=== PATIENT | male | born 1990 | race African-American/Black ===

== ENCOUNTER 2021-10-11 15:06 | Emergency (ER) | payer BC, SELFPAY ==
[2021-10-11 15:21] VITALS: BP 125/66; PULSE 64; RESP 16; TEMP 36.9; O2SAT 100
--- NOTE | 2021-10-11 15:26 | ED.EAR ---
HPI - Ear Problem General Chief complaint: Ear Stated complaint: EAR INFECTION Time Seen by Provider: 10/11/21 15:30 Source: patient and RN notes reviewed Mode of arrival: ambulatory Limitations: no limitations History of Present Illness HPI Narrative: 31-year-old male presents with concern for right ear pain. He reports he usually gets an ear infection every year . Reports usually has pus draining out of his ear when he has an ear infection. He reports decreased hearing in the ear. He denies any current drainage from the ear. He denies runny nose, stuffy nose, sore throat, fever, cough. MD Complaint: ear pain Related Data Home Medications Medication Instructions Recorded Confirmed levothyroxine 75 mcg PO DAILY 10/11/21 10/11/21 mirtazapine [Remeron] 30 mg PO DAILY 10/11/21 10/11/21 sertraline 100 mg PO DAILY 10/11/21 10/11/21 Allergies Allergy/AdvReac Type Severity Reaction Status Date / Time kiwi Allergy Itching Verified 10/11/21 15:26 shellfish derived Allergy Itching Verified 10/11/21 15:26 Review of Systems Review of Systems: CONSTITUTIONAL: Denies malaise, chills, sweats, or fever. EYES: Denies visual changes, redness, or discharge. ENT: Denies rhinorrhea, congestion, sinus pain, and sore throat. Reports right ear pain CARDIOVASCULAR: Denies chest pain, palpitations, or edema. RESPIRATORY: Denies cough. Denies dyspnea. GASTROINTESTINAL: Denies abdominal pain, nausea, vomiting, diarrhea SKIN: Denies rash or itching. MUSCULOSKELETAL: Denies myalgia. NEUROLOGIC: Denies headache. All systems reviewed & are unremarkable except as noted in HPI and below PMFSH Comments At time of signature, agree with nursing past medical, surgical, social and family history. There is no relevant family history pertinent to the presenting complaint Exam Narrative: GENERAL: Well-appearing, well-nourished, and in no acute distress. HEAD: Normocephalic EYES: PERRLA, conjunctivae clear ENT: Nares clear. Mucous membranes moist. Left TM pearly wright with dull light reflex, right TM not visible due to auditory canal abscess; right tragal tenderness. NECK: Supple. No lymphadenopathy CHEST: Clear to auscultation, breath sounds equal. No wheezing, rhonchi, rales, or stridor. No respiratory distress, speaks in full sentences. HEART: Regular rate and rhythm. No murmur heard. SKIN: Warm, dry, no rash. NEURO: Alert and oriented x3. PSYCH: Normal mood and affect Course Course Emergency Course: Patient is aware of diagnosis, understands and agrees to treatment plan. Anticipatory guidance given. Patient agrees to follow-up as directed and is aware of reasons to seek care at the emergency department. Portions of this record may have been created with voice recognition software Level of Care: Express Care Visit Vital Signs Vital signs: Vital Signs Temperature 98.4 F 10/11/21 15:21 Pulse Rate 64 10/11/21 15:21 Respiratory Rate 16 10/11/21 15:21 Blood Pressure 125/66 10/11/21 15:21 Pulse Oximetry 100 10/11/21 15:21 Temperature 98.4 F 10/11/21 15:21 Pulse Rate 64 10/11/21 15:21 Respiratory Rate 16 10/11/21 15:21 Blood Pressure 125/66 10/11/21 15:21 Pulse Oximetry 100 10/11/21 15:21 Reviewed. Procedures Abscess I/D other: Date of Incision: 10/11/21 Time of Incision: 15:35 Side (if applicable): right Local Anesthetic: none Amount of anesthesia used (mL): 2 Technique: needle aspiration Irrigation: No Packing used?: none I&D Results: Pus Abcess I&D Additional Comments: Small amount of pus expressed from EAC abscess, able to view behind the abscess, purulent drainage noted consistent with otitis externa. Ear wick placed to facilitate medication administration, instructions on removing ear wick were given. Patient verbalized understanding. Medical Decision Making MDM Narrative Medical decision making narrative: Differential diagnosis co
== END 2021-10-11 16:33 | disposition home or self-care (01) ==
PROVIDERS: Emergency Provider Nurse Practitioner; PCP Physician Assistant
DX: H60.90 Unspecified otitis externa, unspecified ear (principal); H60.01 Abscess of right external ear; E78.00 Pure hypercholesterolemia, unspecified
CPT/HCPCS: 10160; 99213; G0463

== ENCOUNTER 2023-07-18 20:44 | Emergency (ER) | payer BC, SELFPAY ==
[2023-07-18 20:48] VITALS: BP 126/83; PULSE 84; RESP 17; TEMP 36.3; O2SAT 100
[2023-07-18 20:49] VITALS: BP 126/83; PULSE 73; RESP 16; O2SAT 100
--- NOTE | 2023-07-18 21:15 | ED.GENADULT ---
HPI - General Adult General Chief complaint: Allergic Reaction Stated complaint: allergic reaction Time Seen by Provider: 07/18/23 20:52 History of Present Illness HPI narrative: This is a 32-year-old male presenting with allergic reaction. Patient said he had some watermelon and some gourmet potatoes. He then developed hives on his arms and legs. He had some itching in his throat. No nausea vomiting diarrhea shortness of breath or lightheadedness. Patient has not had a previous allergic reaction to these meds. Related Data Home Medications Medication Instructions Recorded Confirmed levothyroxine 75 mcg tablet 75 mcg PO DAILY 10/11/21 10/11/21 mirtazapine 30 mg tablet (Remeron) 30 mg PO DAILY 10/11/21 10/11/21 sertraline 100 mg tablet 100 mg PO DAILY 10/11/21 10/11/21 Allergies Allergy/AdvReac Type Severity Reaction Status Date / Time kiwi Allergy Itching Verified 07/18/23 21:12 shellfish derived Allergy Itching Verified 07/18/23 21:12 watermelon Allergy Itching Verified 07/18/23 21:12 Exam Narrative: APPEARANCE: No apparent distress. Head: No swelling of lips tongue or uvula EYES: EOMI, NOSE: Atraumatic NECK: Trachea midline RESPIRATORY: No increased rate of breathing, CT AB CARDIOVASCULAR: RRR, ABDOMINAL: Non-distended, soft nontender MUSCULOSKELETAl: No obvious deformities NEURO: Alert. Moving 4/4 extremities SKIN:: mild hives on the patient's thighs, PSYCHIATRIC: Normal affect Course Vital Signs Vital signs: Vital Signs Temperature 97.4 F L 07/18/23 20:48 Pulse Rate 84 07/18/23 20:48 Respiratory Rate 17 07/18/23 20:48 Blood Pressure 126/83 07/18/23 20:48 Pulse Oximetry 100 07/18/23 20:48 Temperature 97.4 F L 07/18/23 20:48 Pulse Rate 73 07/18/23 20:49 Respiratory Rate 16 07/18/23 20:49 Blood Pressure 126/83 07/18/23 20:49 Pulse Oximetry 100 07/18/23 20:49 Medical Decision Making [facility] Narrative Medical decision making narrative: -Course: 32-year-old male presenting with cutaneous allergic reaction. Given steroids Benadryl Pepcid with resolution of his symptoms. No evidence of anaphylaxis at this time. Patient discharged with supportive care and return precautions. -DDX includes but is not limited to: cutaneous allergic reaction, anaphylaxis -Social determinants of health:Unemployed -Interventions: 50 mg Benadryl, 40 mg Pepcid, 10 mg dexamethasone -Shared decision making / Disposition: discharge -RX Benadryl Vital Signs Vital Signs: Vital Signs Temperature 97.4 F L 07/18/23 20:48 Pulse Rate 84 07/18/23 20:48 Respiratory Rate 17 07/18/23 20:48 Blood Pressure 126/83 07/18/23 20:48 Pulse Oximetry 100 07/18/23 20:48 Temperature 97.4 F L 07/18/23 20:48 Pulse Rate 73 07/18/23 20:49 Respiratory Rate 16 07/18/23 20:49 Blood Pressure 126/83 07/18/23 20:49 Pulse Oximetry 100 07/18/23 20:49 Discharge Plan Discharge Clinical Impression: Allergic reaction Patient Disposition: Home, Self-Care Condition: Stable Instructions: Antibiotic Form, Urticaria (ED), Food Allergy (ED) Prescriptions: New diphenhydramine HCl [Allergy (diphenhydramine)] 25 mg capsule 25 mg PO TID PRN (Reason: allergy symptoms) Qty: 30 0RF No Action sertraline 100 mg tablet 100 mg PO DAILY levothyroxine 75 mcg tablet 75 mcg PO DAILY mirtazapine [Remeron] 30 mg tablet 30 mg PO DAILY amoxicillin-pot clavulanate 875-125 mg tablet 1 tablet PO Q12H 10 Days Qty: 20 0RF [id number] 3.5-10,000-1 mg/mL-unit/mL-% drops,suspension 4 drop RIGHT EAR Q8H 7 Days Qty: 10 0RF Follow-up/Referrals: Ren,CORY Partida [Primary Care Provider] -
[2023-07-18] MEDS: FAMOTIDINE 20 MG/2 ML VIAL 40 MG IV PUSH (21:17)
[2023-07-18] MEDS: diphenhydrAMINE HCl INJ 50 MG/ML VIAL IV PUSH (21:17)
[2023-07-18 22:33] VITALS: BP 123/74; PULSE 70; RESP 20; O2SAT 100
== END 2023-07-18 22:26 | disposition home or self-care (01) ==
PROVIDERS: Emergency Provider Emergency Medicine; PCP Physician Assistant
DX: T78.40XA Allergy, unspecified, initial encounter (principal); L50.0 Allergic urticaria; X58.XXXA Exposure to other specified factors, initial encounter
CPT/HCPCS: 96374; 96375; 99284; J1100; J1200

== ENCOUNTER 2023-07-29 16:33 | Emergency (ER) | payer BC, SELFPAY ==
[2023-07-29 16:33] VITALS: BP 138/84; PULSE 65; RESP 18; TEMP 36.6; O2SAT 100
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
== END 2023-07-29 17:53 | disposition home or self-care (01) ==
LOC: ANHED 17:20
PROVIDERS: Emergency Provider Emergency Medicine; PCP Physician Assistant
DX: S70.12XA Contusion of left thigh, initial encounter (principal); V03.00XA Pedestrian on foot injured in collision with car, pick-up truck or van in nontraffic accident, initial encounter
CPT/HCPCS: 99283

== ENCOUNTER 2024-07-24 16:03 | Emergency (ER) | payer BC, SELFPAY ==
[2024-07-24 17:07] VITALS: BP 112/60; PULSE 96; RESP 16; TEMP 37.1; O2SAT 99
--- NOTE | 2024-07-24 17:51 | ECG_ITS ---
Test Date: 2024-07-24 18:30:19 Measurements Intervals [place] Rate: 87 P: 75 WA: 200 QRS: 87 QRSD: 108 T: 72 QT: 333 QTc: 402 Interpretive Statements SINUS RHYTHM NONSPECIFIC ST ELEVATION [0.05+ mV ST ELEVATION] No previous ECG available for comparison Electronically Signed On 07-25-2024 10:40:43 LABORATORY MECHANIC HELPER by Lobito Mayes M.D.
--- NOTE | 2024-07-24 17:53 | ED_ITS ---
HPI - Nausea/Vomiting/Diarrhea General Chief complaint: Nausea/Vomiting/Diarrhea <Casie Ortiz APRN - Last Filed: 07/24/24 17:55> Stated complaint: N/V <Casie Ortiz APRN - Last Filed: 07/24/24 17:55> Time Seen by Provider: 07/24/24 17:45 <Casie Ortiz APRN - Last Filed: 07/24/24 17:55> Focused HPI: Patient is a 33-year-old male who presents to the ER with patient complaints of abdominal pain, nausea, vomiting, decreased p.o. intake, and diarrhea for the past day and half. He reports no one around him has been sick. Patient reports his only medical history is hyperthyroidism. He denies any shortness of breath, wheezing, chest pain, back pain. GENERAL: Well-appearing, well-nourished, and in no acute distress. HEAD: Normocephalic, atraumatic. CHEST: Clear to auscultation. ?No respiratory distress. HEART: Tachycardia, regular rhythm. NEURO: ?Alert and oriented x3. Patient screened in triage and initial orders placed.? ?Additional care and disposition to be based upon?diagnostic testing and treatment. <Casie Ortiz APRN - Last Filed: 07/24/24 17:55> Source: patient <Gerardo Simms PA-C - Last Filed: 07/24/24 21:04> Mode of arrival: ambulatory <Gerardo Simms PA-C - Last Filed: 07/24/24 21:04> Limitations: no limitations <SAM Domingo Last Filed: 07/24/24 21:04> History of Present Illness HPI Narrative: Agree with triage note above. <Gerardo Simms PA-C - Last Filed: 07/24/24 21:04> Related Data Home medications: Home Medications ?Medication ?Instructions ?Recorded ?Confirmed ?Last Taken ?Type levothyroxine 75 mcg tablet 75 mcg PO DAILY 10/11/21 10/11/21 Unknown History mirtazapine 30 mg tablet (Remeron) 30 mg PO DAILY 10/11/21 10/11/21 Unknown History sertraline 100 mg tablet 100 mg PO DAILY 10/11/21 10/11/21 Unknown History <Casie Ortiz APRN - Last Filed: 07/24/24 17:55> Allergies/Adverse reactions: Allergies Allergy/AdvReac Type Severity Reaction Status Date / Time kiwi Allergy Itching Verified 07/18/23 21:12 shellfish derived Allergy Itching Verified 07/18/23 21:12 watermelon Allergy Itching Verified 07/18/23 21:12 <Casie Ortiz APRN - Last Filed: 07/24/24 17:55> Review of Systems 2 Review of Systems: All systems as dictated in HPI <Gerardo Simms PA-C - Last Filed: 07/24/24 21:04> PMFSH Past Medical History Medical History: Medical History (Updated 07/24/24 @ 20:33 by Gerardo Simms PA-C) Healthy adult male <Casie Ortiz APRN - Last Filed: 07/24/24 17:55> Surgical History Surgical History: Surgical History (Updated 07/29/23 @ 17:49 by Shahid Cody MD) No history of previous surgery <Casie Ortiz APRN - Last Filed: 07/24/24 17:55> Exam 2 Narrative: GENERAL: Well-appearing, well-nourished, and in no acute distress. HEAD: Normocephalic, atraumatic. EYES: PERRLA and EOMI. ENT: Nares clear, no rhinorrhea or epistaxis. Mucous membranes moist. Oropharynx without tonsillar hypertrophy exudate or other lesions. NECK: Supple. No adenopathy or masses. CHEST: No respiratory distress. Clear to auscultation. No wheezes rales or rhonchi HEART: Regular rate and rhythm. No murmur heard. Normal peripheral pulses. ABDOMEN: Soft, nontender, nondistended, normal active bowel sounds. MSK: Normal range of motion. No edema. SKIN: Warm, dry, no rash. NEURO: Alert and oriented x4. No focal deficits. PSYCH: Normal mood and affect. <Gerardo Simms PA-C - Last Filed: 07/24/24 21:04> Course Vital Signs Vital signs: Vital Signs Temperature 98.7 F 07/24/24 17:07 Pulse Rate 96 07/24/24 17:07 Respiratory Rate 16 07/24/24 17:07 Blood Pressure 112/60 07/24/24 17:07 Pulse Oximetry 99 07/24/24 17:07 Temperature 98.1 F 07/24/24 21:02 Pulse Rate 75 07/24/24 21:02 Respiratory Rate 16 07/24/24 21:02 Blood Pressure 121/70 07/24/24 21:02 Pulse Oximetry 99 07/24/24 21:02 <Casie Ortiz, WORKERS' COMPENSATION HEARINGS OFFICER - Last Filed: 07/24/24 17:55> Vital Signs Temperature 98.7 F 07/24/24 17:07 Pulse Rate 96 07/24/24 17:07 Respiratory Rate 16 07/24/24 17:07 Blood Pressure 112/60 07/24/24 17:07 Pulse Oximetry 99 07/24/24 17:07 Temperature 98.1 F 07/24/24 21:02 Pulse Rate 75 07/24/24 21:02 Respiratory Rate 16 07/24/24 21:02 Blood Pressure 121/70 07/24/24 21:02 Pulse Oximetry 99 07/24/24 21:02 <Gerardo Simms PA-C - Last Filed: 07/24/24 21:04> MDM - Nausea/Vomiting/Diarrhea MDM Narrative Medical decision making narrative: This is a 32-year-old male who presents to the ED for chief complaint of N/V/D and body aches over the past couple of days. Vitals are normal. Exam is benign. Appears mildly dehydrated. EKG shows sinus rhythm with no acute ischemic findings, there is evidence of benign early repolarization Lab work lab work shows normal white count on CBC. CMP unremarkable overall. Troponin negative. Viral swabs are negative Presentation is consistent with gastroenteritis. Patient was given Bentyl, Zofran, fluids, Reglan and Toradol here with good relief of symptoms. Patient will be discharged in stable condition. Supportive measures discussed and return precautions given. Patient is understanding and agreeable with plan for discharge with PCP follow-up. <Gerardo Simms PA-C - Last Filed: 07/24/24 21:04> Lab Data Result diagrams: 07/24/24 18:24 07/24/24 18:24 <Casie Ortiz, WORKERS' COMPENSATION HEARINGS OFFICER - Last Filed: 07/24/24 17:55> Labs: Lab Results 07/24/24 07/24/24 Range/Units 18:24 19:59 WBC 4.7 (4.5-10.0) K/mm3 RBC 5.07 (4.6-6.20) M/mm3 Hgb 13.7 L (14.0-18.0) g/dL Hct 42.3 (42.0-52.0) % MCV 83.4 (80-100) fl MCH 27.0 (26-34) pg MCHC 32.4 (32-36) g/dl RDW 15.9 H (11.5-14.5) % Plt Count 234 (150-375) k/mm3 MPV 10.0 (7.4-10.4) fl Immature Gran % (Auto) 0.2 (0-0.5) % Neut % (Auto) 80.7 H (45.5-73.1) % Lymph % (Auto) 12.3 L (18.3-44.2) % [place] % (Auto) 6.6 (2.6-8.5) % Eos % (Auto) 0.0 (0-4.4) % Baso % (Auto) 0.2 (0.2-1.2) % Lymph # (Auto) 0.58 L (0.9-3.2) K/mm3 [place] # (Auto) 0.3 (0.1-0.6) K/mm3 Eos # (Auto) 0.0 (0-0.3) K/mm3 Baso # (Auto) 0.0 (0.0-0.1) K/mm3 Abs Immat Gran (auto) 0.01 (0.00-0.031) K/mm3 Absolute Neuts (auto) 3.8 (1.3-6.7) K/mm3 Absolute Nucleated RBC 0.000 (0.0-0.012) K/mm3 Nucleated RBC % 0.0 (0.0-0.2) % Sodium 139 (137-145) mmol/L Potassium 3.6 (3.4-5.0) mmol/L Chloride 103 (98-107) mmol/L Carbon Dioxide 22 (22-30) mmol/L Anion Gap 14 H (4-12) mmol/L BUN 16 (9-20) mg/dL Creatinine 1.03 (0.7-1.3) mg/dL Estim Creat Clear Calc 98 ml/min Estimated GFR > 60 (59 - ) Glucose 100 (65-110) mg/dL Calcium 8.8 (8.4-10.2) mg/dL Total Bilirubin 1.2 (0.2-1.3) mg/dL AST 39 (17-59) U/L ALT 24 (6-50) U/L Alkaline Phosphatase 95 (38-126) U/L Troponin I < 0.012 (0.000-0.034) ng/mL Total Protein 8.0 (6.3-8.2) g/dL Albumin 4.2 (3.5-5.1) g/dL Lipase 38 (23-300) U/L TSH (Reflex) 0.487 (0.465-4.68) uIU/mL Urine Color Dark yellow (Yellow) Urine Appearance Clear (Clear) Urine pH 6.0 (5.0-9.0) Ur Specific [place] 1.039 H (1.001-1.035) Urine Protein 1+ H (Negative) mg/dL Urine Glucose (UA) Negative (Negative) mg/dL Urine Ketones Trace H (Negative) mg/dL Ur Blood (Man) Negative (Negative) Urine Nitrate Negative (Negative) Urine Bilirubin 1+ H (Negative) Urine Urobilinogen 1.0 (<2.0) mg/dL Leukocyte Esterase Rfl Negative (Negative) VITOR/UL Urine RBC 0-2 (0-2) /hpf Urine WBC 0-5 (0-3) /hpf Ur Squamous Epith Cells None seen (Few) /hpf Urine Bacteria None seen /hpf Urine Casts 0-2 Influenza A (RT-PCR) Negative (Negative) Influenza B (RT-PCR) Negative (Negative) RSV (RT-PCR) Negative (Negative) SARS-CoV-2 RNA (RT-PCR) Negative (Negative) <Casie Ortiz, WORKERS' COMPENSATION HEARINGS OFFICER - Last Filed: 07/24/24 17:55> Lab Results 07/24/24 07/24/24 Range/Units 18:24 19:59 WBC 4.7 (4.5-10.0) K/mm3 RBC 5.07 (4.6-6.20) M/mm3 Hgb 13.7 L (14.0-18.0) g/dL Hct 42.3 (42.0-52.0) % MCV 83.4 (80-100) fl MCH 27.0 (26-34) pg MCHC 32.4 (32-36) g/dl RDW 15.9 H (11.5-14.5) % Plt Count 234 (150-375) k/mm3 MPV 10.0 (7.4-10.4) fl Immature Gran % (Auto) 0.2 (0-0.5) % Neut % (Auto) 80.7 H (45.5-73.1) % Lymph % (Auto) 12.3 L (18.3-44.2) % [place] % (Auto) 6.6 (2.6-8.5) % Eos % (Auto) 0.0 (0-4.4) % Baso % (Auto) 0.2 (0.2-1.2) % Lymph # (Auto) 0.58 L (0.9-3.2) K/mm3 [place] # (Auto) 0.3 (0.1-0.6) K/mm3 Eos # (Auto) 0.0 (0-0.3) K/mm3 Baso # (Auto) 0.0 (0.0-0.1) K/mm3 Abs Immat Gran (auto) 0.01 (0.00-0.031) K/mm3 Absolute Neuts (auto) 3.8 (1.3-6.7) K/mm3 Absolute Nucleated RBC 0.000 (0.0-0.012) K/mm3 Nucleated RBC % 0.0 (0.0-0.2) % Sodium 139 (137-145) mmol/L Potassium 3.6 (3.4-5.0) mmol/L Chloride 103 (98-107) mmol/L Carbon Dioxide 22 (22-30) mmol/L Anion Gap 14 H (4-12) mmol/L BUN 16 (9-20) mg/dL Creatinine 1.03 (0.7-1.3) mg/dL Estim Creat Clear Calc 98 ml/min Estimated GFR > 60 (59 - ) Glucose 100 (65-110) mg/dL Calcium 8.8 (8.4-10.2) mg/dL Total Bilirubin 1.2 (0.2-1.3) mg/dL AST 39 (17-59) U/L ALT 24 (6-50) U/L Alkaline Phosphatase 95 (38-126) U/L Troponin I < 0.012 (0.000-0.034) ng/mL Total Protein 8.0 (6.3-8.2) g/dL Albumin 4.2 (3.5-5.1) g/dL Lipase 38 (23-300) U/L TSH (Reflex) 0.487 (0.465-4.68) uIU/mL Urine Color Dark yellow (Yellow) Urine Appearance Clear (Clear) Urine pH 6.0 (5.0-9.0) Ur Specific [place] 1.039 H (1.001-1.035) Urine Protein 1+ H (Negative) mg/dL Urine Glucose (UA) Negative (Negative) mg/dL Urine Ketones Trace H (Negative) mg/dL Ur Blood (Man) Negative (Negative) Urine Nitrate Negative (Negative) Urine Bilirubin 1+ H (Negative) Urine Urobilinogen 1.0 (<2.0) mg/dL Leukocyte Esterase Rfl Negative (Negative) VITOR/UL Urine RBC 0-2 (0-2) /hpf Urine WBC 0-5 (0-3) /hpf Ur Squamous Epith Cells None seen (Few) /hpf Urine Bacteria None seen /hpf Urine Casts 0-2 Influenza A (RT-PCR) Negative (Negative) Influenza B (RT-PCR) Negative (Negative) RSV (RT-PCR) Negative (Negative) SARS-CoV-2 RNA (RT-PCR) Negative (Negative) <Gerardo Simms PA-C - Last Filed: 07/24/24 21:04> ECG Data EKG #1: ECG completion date: 07/24/24 <Gerardo Simms PA-C - Last Filed: 07/24/24 21:04> ECG completion time: 18:30 <Gerardo Simms PA-C - Last Filed: 07/24/24 21:04> Prior ECG tracings: not available for review <Gerardo Simms PA-C - Last Filed: 07/24/24 21:04> Interpretation: Sinus rhythm Rate 87 Normal QRS No acute ischemic findings Benign early repolarization present <Gerardo Simms PA-C - Last Filed: 07/24/24 21:04> Discharge Plan Discharge Clinical Impression: Gastroenteritis <Casie Ortiz APRN - Last Filed: 07/24/24 17:55> Patient Disposition: Home, Self-Care <Casie Ortiz APRN - Last Filed: 07/24/24 17:55> Condition: Stable <Casie Ortiz APRN - Last Filed: 07/24/24 17:55> Instructions: Antibiotic Form, Gastroenteritis (ED) <Casie Ortiz APRN - Last Filed: 07/24/24 17:55> Additional Instructions: Your exam and workup today are reassuring overall. Please take Zofran as needed for nausea at home. Stay very well hydrated. Symptoms should self resolve over the next couple of days. If you have any new or worsening symptoms please return to the ER for further evaluation. <Casie Ortiz APRN - Last Filed: 07/24/24 17:55> Patient Language: Canadian <Casie Ortiz APRN - Last Filed: 07/24/24 17:55> Prescriptions: New ondansetron 4 mg tablet,disintegrating 4 mg PO Q8H PRN (Reason: nausea and vomiting) Qty: 10 0RF No Action sertraline 100 mg tablet 100 mg PO DAILY levothyroxine 75 mcg tablet 75 mcg PO DAILY mirtazapine [Remeron] 30 mg tablet 30 mg PO DAILY amoxicillin-pot clavulanate 875-125 mg tablet 1 tablet PO Q12H 10 Days Qty: 20 0RF naproxen 375 mg tablet 375 mg PO BID Qty: 14 0RF cyclobenzaprine 10 mg tablet 10 mg PO TID PRN (Reason: muscle spasm) Qty: 10 0RF diphenhydramine HCl [Allergy (diphenhydramine)] 25 mg capsule 25 mg PO TID PRN (Reason: allergy symptoms) Qty: 30 0RF <Casie Ortiz APRN - Last Filed: 07/24/24 17:55> Follow-up/Referrals: Ren,CORY Partida [Non-Staff] - <Casie Ortiz APRN - Last Filed: 07/24/24 17:55> Time of Disposition: 20:55 <Casie Ortiz APRN - Last Filed: 07/24/24 17:55> 20:55 <Gerardo Simms PA-C - Last Filed: 07/24/24 21:04>
[2024-07-24] MEDS: ONDANSETRON HCL ODT 4 MG TABLET PO (18:31)
[2024-07-24] MEDS: DICYCLOMINE HCL 10 MG CAPSULE 20 MG PO (18:31)
[2024-07-24 18:54] LABS: Basophils Percent Auto 0.2 % (0.2-1.2); Hematocrit 42.3 % (42.0-52.0); Hemoglobin 13.7 g/dL (14.0-18.0); Immature Granulocyte Absolute 0.01 K/mm3 (0.00-0.031); Immature Granulocyte Percent A 0.2 % (0-0.5); Lymphocytes Absolute Auto 0.58 K/mm3 (0.9-3.2); Lymphocytes Percent Auto 12.3 % (18.3-44.2); Mean Corpuscular HGB Conc 32.4 g/dl (32-36); Mean Corpuscular Volume 83.4 fl (80-100); Monocytes Absolute Auto 0.3 K/mm3 (0.1-0.6); Monocytes Percent Auto 6.6 % (2.6-8.5); Neutrophils Absolute Auto 3.8 K/mm3 (1.3-6.7); Neutrophils Percent Auto 80.7 % (45.5-73.1); Platelet Count Result 234 k/mm3 (150-375); Red Blood Count 5.07 M/mm3 (4.6-6.20); Red Cell Distribution Width 15.9 % (11.5-14.5); White Blood Count 4.7 K/mm3 (4.5-10.0)
[2024-07-24 19:10] VITALS: BP 119/61; PULSE 70; RESP 16; TEMP 36.9; O2SAT 99
[2024-07-24 19:11] LABS: Alanine Aminotransferase 24 U/L (6-50); Albumin Level 4.2 g/dL (3.5-5.1); Alkaline Phosphatase 95 U/L (38-126); Anion Gap 14 mmol/L (4-12); Aspartate Amino Transferase 39 U/L (17-59); Bilirubin,Total 1.2 mg/dL (0.2-1.3); Blood Urea Nitrogen 16 mg/dL (9-20); Calcium 8.8 mg/dL (8.4-10.2); Carbon Dioxide 22 mmol/L (22-30); Chloride 103 mmol/L (98-107); Estimated CRCL calculation 98 ml/min; Estimated Glomerular Filt Rate > 60; Glucose 100 mg/dL (65-110); Lipase 38 U/L (23-300); Potassium 3.6 mmol/L (3.4-5.0); Sodium 139 mmol/L (137-145)
[2024-07-24 19:23] LABS: Troponin I < 0.012 ng/mL (0.000-0.034)
[2024-07-24 19:30] LABS: Influenza A QL RT-PCR Negative (Negative); Influenza B QL RT-PCR Negative (Negative); RSV RNA, RT-PCR Negative (Negative); SARS-CoV-2 RNA PCR Negative (Negative)
[2024-07-24 19:42] LABS: Thyroid Stimulating Hormone Reflex 0.487 uIU/mL (0.465-4.68)
[2024-07-24] MEDS: SODIUM CHLORIDE 0.9% IV 1,000 ML 999 ML IV CONT (20:00)
[2024-07-24] MEDS: KETOROLAC 30 MG/ML VIAL (*BKC) IV PUSH (20:18)
[2024-07-24] MEDS: METOCLOPRAMIDE HCL INJ 10 MG/2 ML VIAL IV PUSH (20:19)
[2024-07-24 20:39] LABS: Add Urine Microscopic? YES; Appearance Urine Clear (Clear); Bacteria Urine None Seen /hpf; Bilirubin Urine 1+ (Negative); Blood Urine Negative (Negative); Color Urine Dark Yellow (Yellow); Glucose Urine UA Negative (Negative); Ketones Urine Trace mg/dL (Negative); Leukocyte Esterase Ur Negative LEU/UL (Negative); Nitrate Urine Negative (Negative); Non Pathogenic Casts 0-2; Protein Urine 1+ mg/dL (Negative); RBC Urine 0-2 /hpf (0-2); Specific Grav Ur 1.039 (1.001-1.035); Squamous Epithelial Cell Urine None Seen /hpf (Few); WBC Urine 0-5 /hpf (0-3)
[2024-07-24 21:02] VITALS: BP 121/70; PULSE 75; RESP 16; TEMP 36.7; O2SAT 99
--- OUTSIDE RECORDS SUMMARY | 2024-07-27 14:54 | XMS_ITS | Clinical Summary ---
Author Organization [facility] Address [address] [place] [address]. [place], [place] [id number] [place] [id number] Care Team Providers Care Bean Sprout Laborer Name Role Phone Anoop Mcclure Primary Care Provider Unavail able Allergies No known active allergies Medications sertraline 100 MG tablet TAKE 1 TABLET BY MOUTH EVERY DAY AT BEDTIME WITH FOOD 06/25/2021 Active mirtazapine 30 MG tablet Take 30 mg by mouth nightly at bedtime. 06/25/2021 Active EUTHYROX 75 MCG tablet Take 75 mcg by mouth daily. 06/25/2021 Active Family History Medical History Relation Comments Diabetes Father Heart Disease Father Hypertension Father Diabetes Mother Heart Disease Mother Hypertension Mother Relation Status Comments Father Mother Social History Tobacco Use Types Packs/Day Years Used Date Smoking Tobacco: Never Smokeless Tobacco: Never Alcohol Use Standard Drinks/Week Comments Not Currently 0 (1 standard drink = 0.6 oz pur e alcohol) Sex and Gender Information Value Date Recorded Sex Assigned at Not on file Legal Sex Male 7:48 PM CDT Gender Identity Not on file Sexual Orientation Not on file Last Filed Vital Signs Vital Sign Reading Time Taken Comments Blood Pressure 124/63 07/03/2021 5:49 PM CHEMICAL WORKER Pulse 68 07/03/2021 5:49 PM CHEMICAL WORKER Temperature 36.7 ??C (98 ??F) 07/03/2021 5:49 PM CHEMICAL WORKER Respiratory Rate 18 07/03/2021 5:49 PM CHEMICAL WORKER Oxygen Saturation 100% 07/03/2021 5:49 PM CHEMICAL WORKER Inhaled Oxygen Concentration - - Weight 93 kg (205 lb) 07/03/2021 5:49 PM CHEMICAL WORKER Height 182.9 cm (6') 07/03/2021 5:49 PM CHEMICAL WORKER Body Mass Index 27.8 07/03/2021 5:49 PM CHEMICAL WORKER Plan of Treatment Health Maintenance Due Date Last Done Comments Annual Physical 1992 Hepatitis C 09/05/2007 DTaP, Tdap and Td Vaccines (1 - Tdap) 2008 11/03/1993, 06/14/1991, 05/11/1990, Additional history exists Hepatitis B Vaccines (1 of 3 - 19+ 3-dose series) 2008 COVID-19 Vaccine ( - 2023-25 season) 2024 Influenza Adult (#1) 2024 HPV Vaccines Aged Out No longer eligi ble based on patient's age to complete this topic Meningococcal Vaccine Aged Out No kilo will eligible based on patient's age to complete this topic Pneumococcal Vaccine: Pediatrics (0 to 5 Years) and At-Risk Patients (6 to 64 Years) Aged Out No longer eligible based on patient's age to complete this topic RSV Immunizations Under 20 Months Aged Out No longer eligible based on patient's age to complete this topic Insurance Care Teams Bean Sprout Laborer Relationship Specialty Start Date End Date Anoop Mcclure PA PCP - General PHYSICIAN DRIVER SALES 06/19/20
--- OUTSIDE RECORDS SUMMARY | 2024-07-27 14:54 | XMS_ITS | Referral Summary ---
Author Organization [facility] Address [address] [place] [address] Care Team Providers Care Classification Control Clerk Name Role Phone Unavailable Primary Care Provider Unavailabl e Source Comments [facility],non-owned Affiliates and Associated Physician Practices is amultiple site organization consisting of ambulatory clinics and hospital sitesin [place], [place], [place] and [place]. This disclosure is being madepursuant to the Care Everywhere program and may not contain all information available regarding this patient. Last updated 18.[facility] [employer] Social History Tobacco Use Types Packs/Day Years Used Date Smoking Tobacco: Never Assessed Sex and Gender Information Value Date Recorded Sex Assigned at Not on file Gender Identity Not on file Sexual Orientation Not on file Plan of Treatment Not on file
--- OUTSIDE RECORDS SUMMARY | 2024-07-27 14:54 | XMS_ITS | Patient Health Summary ---
Author Organization [facility] Address [address] [place] [address] Care Team Providers Care Landmen Name Role Phone Unavailable Primary Care Provider Unavailnash e Note from [facility],non-owned Affiliates and Associated Physician Practices is amultiple site organization consisting of ambulatory clinics and hospital sitesin [place], [place], [place]. This disclosure is being madepursuant to the Care Everywhere program and may not contain all information available regarding this patient. Last updated 18.[facility] Social History Tobacco Use Types Packs/Day Years Used Date Smoking Tobacco: Never Assessed Sex and Gender Information Value Date Recorded Sex Assigned at Not on file Gender Identity Not on file Sexual Orientation Not on file Procedures * GROSS + MICRO EXAM(Performed 09/27/1998) Results * GROSS + MICRO EXAM (09/27/1998 11:43 AM ROTARY FURNACE TENDER) Result CASE NUMBER [id number] [facility] PATH REPORT Comment: ORDERING PHYSICIAN ??BRANDON YU SPECIMEN TYPE ?Hernia Sac-L. Inguinal CLINICAL HISTORY ? The patient is a 8-year-old boy with a left inguinal hernia who underwent repair of the same. ?? GROSS DESCRIPTION ? The specimen labeled with the patient's name and left inguinal hernia sac is received fresh for gross and microscopic examination and consists of a 1 x 0.4 x 0.2 cm. membranous portion of glistening pink-slaughter soft tissue submitted in toto as A1 . ??(CT/kb) MICROSCOPIC DESCRIPTION ? (1 H/E) DIAGNOSIS ? DIAGNOSIS ?? LEFT INGUINAL HERNIA SAC ?- MESOTHELIAL LINED FIBROUS CONNECTIVE TISSUE ?CONSISTENT WITH HERNIA SAC. PATHOLOGIST ?Tee Caban M.D. ELECTRONICALLY LOWELLTEE KHAN MISCELLANEOUS SAMPLES / Unknown 09/27/1998 11:43 AM ROTARY FURNACE TENDER 09/27/1998 11:43 AM ROTARY FURNACE TENDER Historical Provider MD LAB - PATHOLOGY/C YTOLOGY ORDERABLES [facility] PATH REPORT
--- OUTSIDE RECORDS SUMMARY | 2024-07-27 14:54 | XMS_ITS | Clinical Summary ---
Author Organization [facility] Address [address] [place] [address] Care Team Providers Care Floatman Name Role Phone Unavailable Primary Care Provider Unavailabl e Source Comments [facility],non-owned Affiliates and Associated Physician Practices is amultiple site organization consisting of ambulatory clinics and [place]in [place]. This disclosure is being madepursuant to the Care Everywhere program and may not contain all information available regarding this patient. Last updated 18.[facility] [employer] Social History Tobacco Use Types Packs/Day Years Used Date Smoking Tobacco: Never Assessed Sex and Gender Information Value Date Recorded Sex Assigned at Not on file Gender Identity Not on file Sexual Orientation Not on file Plan of Treatment Health Maintenance Due Date Last Done Comments HIV SCREENING 2004 HEPATITIS C SCREENING 08/31/2007 DTAP/TDAP/TD VACCINES (1 - Tdap) 2008 HEPATITIS B VACCINE (1 of 3 - 19+ 3-dose series) 2008 COVID-19 VACCINE ( - 2023-2 5 season) 2024 INFLUENZA VACCINE (#1) 2024 DEPRESSION SCREENING 07/05/2024 ZOSTER VACCINE (1 of 2) 09/05/2039 HIB VACCINE Aged Out No longer eligi ble based on patient's age to complete this topic HPV VACCINE Aged Out No longer eligi ble based on patient's age to complete this topic MENINGOCOCCAL (Group B) VACCINE Aged Out No longer eligible based on patient's age to complete this topic MENINGOCOCCAL VACCINE Aged Out No kilo will eligible based on patient's age to complete this topic PNEUMOCOCCAL VACCINE Aged Out No long er eligible based on patient's age to complete this topic
== END 2024-07-24 21:04 | disposition home or self-care (01) ==
PROVIDERS: Registered Nurse; Emergency Provider Physician Assistant
DX: K52.9 Noninfective gastroenteritis and colitis, unspecified (principal); Z20.822 Contact with and (suspected) exposure to COVID-19; E03.9 Hypothyroidism, unspecified; Z79.899 Other long term (current) drug therapy
CPT/HCPCS: 36415; 80053; 81001; 83690; 84443; 84484; 85025; 87637; 93005; 96361; 96374; 96375; 99284; A9270; J1885; J2765; J7030